=== PATIENT | male | born 1955 | race Two or more races ===

== ENCOUNTER → 2017-01-19 | Outpatient (CLI) | payer MEDICARE, MEDICAID ==
[~2017-01-19] MED LIST: Benztropine; CALC600T3; FLUP10TA PO; LEVO175T2; QUET5TAB; ROSU20TA; Tamsulosin
== END ==
LOC: M SMT 14:20
PROVIDERS: ATTEND Urology
DX: R97.20 Elevated prostate specific antigen [PSA] (principal); R35.0 Frequency of micturition
CPT/HCPCS: 36415; 81001; 84153; 87086; G0463

== ENCOUNTER 2017-04-28 15:53 | Emergency (ER) | payer MEDICARE, MEDICAID ==
[~2017-04-28] VITALS: Ht 177.8 cm; Wt 64.5 kg
[2017-04-28] MEDS ORDERED: FLUP10TA PO (16:24)
[2017-04-28] MEDS ORDERED: Tamsulosin (16:24)
[2017-04-28] MEDS ORDERED: CALC600T3 (16:24)
[2017-04-28] MEDS ORDERED: QUET5TAB (16:24)
[2017-04-28] MEDS ORDERED: ROSU20TA (16:24)
[2017-04-28] MEDS ORDERED: Benztropine (16:24)
[2017-04-28] MEDS ORDERED: LEVO175T2 (16:24)
[2017-04-28 16:41] LABS: BASO % 0.6 % (0.0-1.0); EOS # 0.2 K/mm3 (0.0-0.50); EOS % 3.1 % (0.0-3.0); LARGE UNSTAINED CELL # 0.1 K/mm3 (0.0-0.4); LARGE UNSTAINED CELL % 2.2 % (0.0-4.0); LYMPH # 1.3 K/mm3 (1.5-4.5); MEAN CORPUSCULAR HEMOGLOBIN 30.1 pg (27.0-33.0); MEAN CORPUSCULAR HGB CONC 35.9 g/dl (32.0-36.5); MEAN CORPUSCULAR VOLUME 83.8 fl (80.0-96.0); MONO # 0.4 K/mm3 (0.0-0.8); MONO % 6.3 % (0.0-5.0); NEUTROPHILS # 3.7 K/mm3 (1.8-7.7); NEUTROPHILS % 65.8 % (36.0-66.0); PLATELET COUNT, AUTOMATED 151 k/mm3 (150-450); RED CELL DISTRIBUTION WIDTH 13.4 % (11.5-14.5); WHITE BLOOD COUNT 5.6 K/mm3 (4.0-10.0)
[2017-04-28 16:46] LABS: INR 1.08
[2017-04-28 17:12] LABS: ALBUMIN 3.9 GM/DL (3.2-5.2); ALKALINE PHOSPHATASE 80 U/L (45-117); ALT/SGPT 52 U/L (12-78); ANION GAP 9 MEQ/L (8-16); AST/SGOT 18 U/L (15-37); BILIRUBIN,DIRECT 0.1 MG/DL (0.0-0.2); BILIRUBIN,TOTAL 0.4 MG/DL (0.2-1.0); BLOOD UREA NITROGEN 14 MG/DL (7-18); CALCIUM LEVEL 8.8 MG/DL (8.8-10.2); CARBON DIOXIDE LEVEL 27 MEQ/L (21-32); CHLORIDE LEVEL 109 MEQ/L (98-107); CREATININE FOR GFR 1.02 MG/DL (0.70-1.30); GLOMERULAR FILTRATION RATE > 60.0 (>49); GLUCOSE, FASTING 103 MG/DL (80-110); MAGNESIUM LEVEL 2.3 MG/DL (1.8-2.4); POTASSIUM SERUM 3.9 MEQ/L (3.5-5.1); SODIUM LEVEL 145 MEQ/L (136-145); TOTAL PROTEIN 6.5 GM/DL (6.4-8.2)
[2017-04-28] MEDS ORDERED: NS 1,000 ML IV ONE (17:45)
[2017-04-28 17:58] LABS: PHOSPHORUS LEVEL 3.9 MG/DL (2.5-4.9)
[2017-04-28 21:15] VITALS: BP 133/72
--- NOTE | 2017-04-30 05:47 | ECGEPIP ---
Stationary ECG Study [facility] - ED Test Date: 2017-04-28 Pat Name: MYAH STARK Department: Room: - Gender: M Director Behavioral Health: evelio : 1955 Requested By: Singh Temple PA-C Order Number: [id number] Reading MD: Garrison Guardado Measurements Intervals [place] Rate: 62 P: 63 [place]: 164 QRS: -25 QRSD: 85 T: 48 QT: 388 QTc: 396 Interpretive Statements SINUS RHYTHM SEPTAL MYOCARDIAL INFARCTION, PROBABLY OLD Electronically Signed On 04-30-2017 5:47:18 EDT by Garrison Guardado
== END 2017-04-28 21:23 | disposition home or self-care (01) ==
LOC: M ED 15:53
DX: T42.71XA Poisoning by unspecified antiepileptic and sedative-hypnotic drugs, accidental (unintentional), initial encounter (principal); F99 Mental disorder, not otherwise specified; Z79.899 Other long term (current) drug therapy; Z88.0 Allergy status to penicillin

== ENCOUNTER → 2017-08-17 | Outpatient (REF) | payer MEDICARE, MEDICAID ==
[2017-08-17 19:05] LABS: APPEARANCE, URINE CLEAR (CLEAR); BACTERIA, URINE AUTO NEGATIVE (NEGATIVE); BILIRUBIN, URINE AUTO NEGATIVE (NEGATIVE); BLOOD, URINE BLOOD 1+ (NEGATIVE); COLOR, URINE STRAW (YELLOW); GLUCOSE, URINE (UA) AUTO NEGATIVE (NEGATIVE); KETONE, URINE AUTO NEGATIVE (NEGATIVE); LEUKOCYTE ESTERASE, URINE AUTO NEGATIVE (NEGATIVE); NITRITE, URINE AUTO NEGATIVE (NEGATIVE); PROTEIN, URINE AUTO NEGATIVE (NEGATIVE); RBC, URINE AUTO 0 /HPF (0-3); SPECIFIC GRAVITY URINE AUTO 1.008 (1.002-1.035); SQUAMOUS EPITHELIAL CELL UR AU 0 /HPF (0-6); UROBILINOGEN, URINE AUTO 0.2 mg/dL (0.0-2.0); WBC, URINE AUTO 0 /HPF (0-3)
== END ==
LOC: M SMT 18:11
DX: N40.1 Benign prostatic hyperplasia with lower urinary tract symptoms (principal)
CPT/HCPCS: 81001

== ENCOUNTER → 2017-08-22 | Outpatient (CLI) | payer MEDICARE, MEDICAID | LOC: M SMT 12:18 | DX: N40.1 Benign prostatic hyperplasia with lower urinary tract symptoms (principal) | CPT/HCPCS: 76857 ==

== ENCOUNTER 2018-11-13 11:02 | Emergency (ER) | payer MEDICARE, MEDICAID ==
[~2018-11-13] VITALS: Ht 177.8 cm; Wt 80.5 kg
[~2018-11-13 11:02] MED LIST changes: -ROSU20TA; +ROSU20TA4
[2018-11-13 12:38] LABS: HEMATOCRIT 43.5 % (42.0-52.0); HEMOGLOBIN 14.6 g/dl (13.5-17.5); MEAN CORPUSCULAR HGB CONC 33.6 g/dl (32.0-36.5); MEAN CORPUSCULAR VOLUME 86.5 fl (80.0-96.0); PLATELET COUNT, AUTOMATED 141 10^3/uL (150-450); RED BLOOD COUNT 5.03 10^6/uL (4.30-6.10); WHITE BLOOD COUNT 6.9 10^3/uL (4.0-10.0)
[2018-11-13 13:36] LABS: ACETAMINOPHEN LEVEL < 2.0 UG/ML (10.0-30.0); ALBUMIN 4.1 GM/DL (3.2-5.2); ALT/SGPT 67 U/L (12-78); BILIRUBIN,DIRECT 0.1 MG/DL (0.0-0.2); BILIRUBIN,TOTAL 0.5 MG/DL (0.2-1.0); BLOOD UREA NITROGEN 15 MG/DL (7-18); CALCIUM LEVEL 9.3 MG/DL (8.8-10.2); CARBON DIOXIDE LEVEL 26 MEQ/L (21-32); CHLORIDE LEVEL 109 MEQ/L (98-107); ETHYL ALCOHOL (ETHANOL) < 0.003 % (0.000-0.010); GLOMERULAR FILTRATION RATE > 60.0 (>49); GLUCOSE, FASTING 86 MG/DL (70-100); POTASSIUM SERUM 4.1 MEQ/L (3.5-5.1); SALICYLATE LEVEL < 1.7 MG/DL (5.0-30.0); SODIUM LEVEL 142 MEQ/L (136-145); TOTAL PROTEIN 6.6 GM/DL (6.4-8.2)
[2018-11-13 13:51] LABS: AMPHETAMINES LEVEL URINE NEGATIVE (NEGATIVE); BARBITURATES URINE NEGATIVE (NEGATIVE); BENZODIAZEPINES URINE NEGATIVE (NEGATIVE); CANNABINOIDS URINE NEGATIVE (NEGATIVE); COCAINE METABOLITE URINE NEGATIVE (NEGATIVE); METHADONE URINE NEGATIVE (NEGATIVE); OPIATES URINE NEGATIVE (NEGATIVE); PHENCYCLIDINE URINE NEGATIVE (NEGATIVE)
[2018-11-13 17:34] VITALS: BP 125/73
== END 2018-11-13 17:56 | disposition home or self-care (01) ==
LOC: M ED 11:02
DX: F20.9 Schizophrenia, unspecified (principal); Z79.899 Other long term (current) drug therapy
CPT/HCPCS: 80048; 80076; 80307; 84443; 85027; 99284; G0480

== ENCOUNTER → 2019-09-03 | Outpatient (REF) | payer MEDICARE, MEDICAID ==
[~2019-09-03] MED LIST changes: -FLUP10TA PO; +FLUP10TA11 PO; -ROSU20TA4; +ROSU20TA5
[2019-09-03 20:46] LABS: FREE T4 1.25 NG/DL (0.76-1.46); THYROID STIMULATING HORMONE 3.89 uIU/ML (0.358-3.740)
[2019-09-03 20:47] LABS: BASO # 0.1 10^3/uL (0.0-0.2); BASO % 0.7 % (0.0-1.0); EOS # 0.2 10^3/uL (0.0-0.5); EOS % 2.2 % (0.0-3.0); HEMATOCRIT 43.4 % (42.0-52.0); HEMOGLOBIN 14.4 g/dl (13.5-17.5); LYMPH # 1.5 10^3/uL (1.5-5.0); LYMPH % 20.6 % (24.0-44.0); MEAN CORPUSCULAR HEMOGLOBIN 29.2 pg (27.0-33.0); MEAN CORPUSCULAR HGB CONC 33.2 g/dl (32.0-36.5); MONO # 0.6 10^3/uL (0.0-0.8); MONO % 7.6 % (0.0-5.0); NEUTROPHILS % 68.4 % (36.0-66.0); PLATELET COUNT, AUTOMATED 145 10^3/uL (150-450); RED BLOOD COUNT 4.93 10^6/uL (4.30-6.10); TOTAL 25(OH) VITAMIN D 34.2 NG/ML (30.0-100.0); WHITE BLOOD COUNT 7.4 10^3/uL (4.0-10.0)
== END ==
LOC: M LAB REF 14:49
PROVIDERS: ATTEND Nurse Practitioner Family
DX: Z13.9 Encounter for screening, unspecified (principal); E55.9 Vitamin D deficiency, unspecified; E03.9 Hypothyroidism, unspecified; D69.6 Thrombocytopenia, unspecified

== ENCOUNTER 2019-11-01 11:45 | Emergency (ER) | payer MEDICARE, MEDICAID ==
[~2019-11-01] VITALS: Ht 177.8 cm; Wt 76.8 kg
[2019-11-01] MEDS ORDERED: VITA200010 (11:56)
[2019-11-01] MEDS ORDERED: BENZ0.5T23 (11:56)
[2019-11-01 13:02] LABS: BASO # 0.1 10^3/uL (0.0-0.2); EOS # 0.1 10^3/uL (0.0-0.5); EOS % 2.7 % (0.0-3.0); HEMATOCRIT 42.4 % (42.0-52.0); HEMOGLOBIN 14.3 g/dl (13.5-17.5); LYMPH # 1.5 10^3/uL (1.5-5.0); LYMPH % 31.5 % (24.0-44.0); MEAN CORPUSCULAR HGB CONC 33.7 g/dl (32.0-36.5); MONO # 0.5 10^3/uL (0.0-0.8); MONO % 10.2 % (0.0-5.0); NEUTROPHILS # 2.7 10^3/uL (1.5-8.5); NEUTROPHILS % 54.4 % (36.0-66.0); PLATELET COUNT, AUTOMATED 150 10^3/uL (150-450); RED BLOOD COUNT 4.93 10^6/uL (4.30-6.10); WHITE BLOOD COUNT 4.9 10^3/uL (4.0-10.0)
[2019-11-01 13:32] LABS: ALBUMIN 3.7 GM/DL (3.2-5.2); ALT/SGPT 25 U/L (12-78); BILIRUBIN,DIRECT 0.2 MG/DL (0.0-0.2); BILIRUBIN,TOTAL 0.5 MG/DL (0.2-1.0); BLOOD UREA NITROGEN 11 MG/DL (7-18); CALCIUM LEVEL 9.3 MG/DL (8.8-10.2); CARBON DIOXIDE LEVEL 31 MEQ/L (21-32); CHLORIDE LEVEL 106 MEQ/L (98-107); CK-MB VALUE MASS < 1.0 NG/ML (<3.6); CPK CREATINE PHOSPHOKINASE 106 U/L (39-308); CREATININE FOR GFR 1.19 MG/DL (0.70-1.30); GLOMERULAR FILTRATION RATE > 60.0 (>49); GLUCOSE, FASTING 86 MG/DL (70-100); MB/CK RELATIVE INDEX 0.94 (< OR =4); POTASSIUM SERUM 4.1 MEQ/L (3.5-5.1); SODIUM LEVEL 140 MEQ/L (136-145); THYROID STIMULATING HORMONE 0.159 uIU/ML (0.358-3.740); TOTAL PROTEIN 6.3 GM/DL (6.4-8.2); TROPONIN I < 0.02 NG/ML (< 0.10)
[2019-11-01] MEDS ORDERED: NS 1,000 ML IV ONE (13:45)
[2019-11-01 16:45] VITALS: BP 116/75
[2019-11-01] MEDS ORDERED: SERO50TA PO (16:58)
--- NOTE | 2019-11-02 08:43 | ECGEPIP ---
[facility] - ED Test Date: 2019-11-01 Pat Name: MYAH STARK Department: Room: - Gender: Male Therapeutic Recreation Director: liliya : 1955 Requested By: Garrison Butler Order Number: [id number] Reading MD: Ana Bernstein Measurements Intervals [place] Rate: 64 P: 67 ME: 124 QRS: -51 QRSD: 92 T: 52 QT: 402 QTc: 415 Interpretive Statements SINUS RHYTHM LEFT ANTERIOR FASCICULAR BLOCK POSSIBLE OLD SEPTAL [place] SIMILAR 04/28/17 Electronically Signed on 11-02-2019 8:43:11 EDT by Ana Bernstein
== END 2019-11-01 17:21 | disposition home or self-care (01) ==
LOC: M ED 11:45
DX: I95.2 Hypotension due to drugs (principal); T43.595A Adverse effect of other antipsychotics and neuroleptics, initial encounter; F20.9 Schizophrenia, unspecified; E78.5 Hyperlipidemia, unspecified; K75.81 Nonalcoholic steatohepatitis (NASH); Z87.891 Personal history of nicotine dependence; Z79.899 Other long term (current) drug therapy

== ENCOUNTER 2020-01-06 12:25 | Inpatient (IN) | payer MEDICARE, MEDICAID ==
[~2020-01-06] VITALS: Ht 177.8 cm; Wt 72.7 kg
[~2020-01-06 12:25] MED LIST changes: +BENZ0.5T23 PO; -CALC600T3; +CALC600T3 PO; -LEVO175T2; +LEVO175T2 PO; -ROSU20TA5; +ROSU20TA5 PO; +SERO50TA PO; +VITA200010 PO
[2020-01-06 13:29] LABS: HEMATOCRIT 44.2 % (42.0-52.0); HEMOGLOBIN 14.8 g/dl (13.5-17.5); MEAN CORPUSCULAR HGB CONC 33.5 g/dl (32.0-36.5); MEAN CORPUSCULAR VOLUME 86.5 fl (80.0-96.0); PLATELET COUNT, AUTOMATED 133 10^3/uL (150-450); RED BLOOD COUNT 5.11 10^6/uL (4.30-6.10); WHITE BLOOD COUNT 7.6 10^3/uL (4.0-10.0)
[2020-01-06 13:37] LABS: AMPHETAMINES LEVEL URINE NEGATIVE (NEGATIVE); BARBITURATES URINE NEGATIVE (NEGATIVE); BENZODIAZEPINES URINE NEGATIVE (NEGATIVE); CANNABINOIDS URINE NEGATIVE (NEGATIVE); COCAINE METABOLITE URINE NEGATIVE (NEGATIVE); METHADONE URINE NEGATIVE (NEGATIVE); OPIATES URINE NEGATIVE (NEGATIVE); PHENCYCLIDINE URINE NEGATIVE (NEGATIVE)
[2020-01-06 13:49] LABS: ACETAMINOPHEN LEVEL < 2.0 UG/ML (10.0-30.0); ALT/SGPT 60 U/L (12-78); BILIRUBIN,DIRECT 0.2 MG/DL (0.0-0.2); BILIRUBIN,TOTAL 0.4 MG/DL (0.2-1.0); BLOOD UREA NITROGEN 10 MG/DL (7-18); CALCIUM LEVEL 9.2 MG/DL (8.8-10.2); CARBON DIOXIDE LEVEL 30 MEQ/L (21-32); CHLORIDE LEVEL 106 MEQ/L (98-107); CREATININE FOR GFR 1.02 MG/DL (0.70-1.30); ETHYL ALCOHOL (ETHANOL) < 0.003 % (0.000-0.010); GLOMERULAR FILTRATION RATE > 60.0 (>49); GLUCOSE, FASTING 86 MG/DL (70-100); SALICYLATE LEVEL < 1.7 MG/DL (5.0-30.0); SODIUM LEVEL 144 MEQ/L (136-145); TOTAL PROTEIN 6.7 GM/DL (6.4-8.2)
[2020-01-06] MEDS ORDERED: CALCTAB62 PO (14:48)
[2020-01-06] MEDS ORDERED: SERO50TA PO (14:48)
[2020-01-06] MEDS ORDERED: METAL LOCK LOOP XX ONE (17:48)
[2020-01-06] MEDS ORDERED: MOM 30ML SUSPENSION UDC PO PRN (18:30)
[2020-01-06] MEDS ORDERED: MAALOX 30 ML SUSP *UDC PO PRN (18:30)
[2020-01-06] MEDS ORDERED: ACETAMINOPHEN TAB 650MG DOSE (2X325MG) PO PRN (18:30)
[2020-01-06 22:00] VITALS: BP 132/78
[2020-01-07] MEDS: LEVOTHYROXINE 100MCG TABLET (0.1MG) PO SCH (05:58)
[2020-01-07] MEDS: LEVOTHYROXINE 75MCG TABLET (0.075MG) PO SCH (05:58)
[2020-01-07 06:40] VITALS: BP 122/84
--- NOTE | 2020-01-07 09:12 | MHHPEPDOC ---
General Date Of Admission: Jan 06, 2020 Legal Status: 9.13 Chief Complaint I want my meds increased" History of Present Illness HISTORY OF THE PRESENT ILLNESS: Patient is a 64 -year-old , male, who presented to [facility] at the behest of his shelter, he reported that he had become increasingly depressed and less interested, it was difficult to redirect him during the discussion as he was quite rapid and pressured. The staff at [facility] have noticed that he is become increasingly more disturbed and that his behaviors have changed. No medications had been altered and he become very much depressed and despondent. The patient presented and was admitted voluntarily as he wanted his medications increased. The patient reported that he has various hallucinations of his previous doctors and sister and then goes into a long diatribe on sexualization. Psychiatric Review of Systems Depression (2 or more weeks): anhedonia, decreased energy, difficulty concentrating, psychomotor changes Brandee (4 or more days of): other (no changes, no appearence of previous episode) Psychosis: auditory hallucination, paranoia, disorganization PTSD: denies Anxiety: situational anxiety, stressor related anxiety Past Psychiatric History Previous Psychiatric Diagnosis: Schizophrenia . Previous Psychiatric Admissions: 2003 . Suicide Attempts: denies. Psychiatric Follow-up: [facility]. Psychiatric medications: Prolixin and seroquel. Past Medical History Medical Problems hypothyroid Family Medical/Psychiatric HX Medical Problems unable to determine patient poor historian Addiction History denies Social History Current Living Situation: lives at [facility]. Education: . Employment: works at times. Social Support: [facility]. Legal: none noted . Marital: single, no children. Mental Status Examination General Appearance: unkempt Build: average Demeanor: average Eye Contact: average Activity: average Behavior: cooperative Speech: rapid Mood: elevated Affect: disorganized Thought Process: circumstantial, associative, racing Thought Content (Delusions): persecutory, paranoia Thought Content (Other): appears paranoid Thought Content (Aggressive): none reported Perception (Hallucinations): auditory Cognition(Intelligence Est.): average Oriented: Awake, Alert, Oriented times three Insight: poor Judgment: Poor Psychosis: Psychotic Perceptions A-FIB/CHADSVASC A-FIB History Current/History of A-Fib/PAF?: No Assessment 64 yo man with hx of schizophrenia presents with increasing bizarre behavior Problem List Problems: (1) Depression Status: Acute Response to Treatment: Uncontrolled Problem Specific Plan: Monitor Clinically Problem Text: add sertraline to 25mg daily, discussed with patient as far as possible. (2) Chronic schizophrenia Status: Acute Response to Treatment: Uncompensated Problem Text: increase proxilin to 15mg BID (3) Hypothyroid Status: Chronic Problem Specific Plan: Monitor Clinically Problem Text: continue home meds Initial Treatment Plan 1. Patient was admitted on a [9.13] status. 2. Complete history was obtained. 3. With patients permission, family will be contacted and database will be expanded. 4. Patients medication regimen will be reviewed and changed accordingly. 5. Patient will be provided with protected environment. 6. Patient will be treated with individual, group, and milieu therapies. 7. Patient will receive supportive psych-education. 8. Discharge planning will commence immediately. 9. Outpatient follow-up treatment will be strongly recommended. 10. The initial treatment plan will focus initially on: * Altered thoughts ESTIMATED LENGTH OF STAY: 2-5 DAYS. TIME SPENT COUNSELING AND COORDINATING INITIAL CARE: 30 minutes. Vital Signs Vital Signs Date Time Temp Pulse Resp B/P (MAP) Pulse Ox O2 Delivery O2 Flow Rate FiO2 01/07/20 08:57 Room Air 01/07/20 06:40 98.1 73 14 122/84 (97) 98 Laboratory Data 24H Labs Laboratory Tests 2 01/06/20 12:53: Nucleated Red Blood Cells % (auto) 0.0, Anion Gap 8, Glomerular Filtration Rate > 60.0, Calcium Level 9.2, Total Bilirubin 0.4, Direct Bilirubin 0.2, Aspartate Amino Transf (AST/SGOT) 27, Alanine Aminotransferase (ALT/SGPT) 60, Alkaline Phosphatase 75, Total Protein 6.7, Albumin 4.0, Albumin/Globulin Ratio 1.5, Thyroid Stimulating Hormone (TSH) 7.630H, Salicylates Level < 1.7L, Urine Opiates Screen NEGATIVE, Urine Methadone Screen NEGATIVE, Acetaminophen Level < 2.0L, Urine Barbiturates Screen NEGATIVE, Urine Phencyclidine Screen NEGATIVE, Urine Amphetamines Screen NEGATIVE, Urine Benzodiazepines Screen NEGATIVE, Urine Cocaine Metabolite Screen NEGATIVE, Urine Cannabinoids Screen NEGATIVE, Ethyl Alcohol Level < 0.003 CBC/BMP Laboratory Tests 01/06/20 12:53 Medications Scheduled Benztropine Mesylate (Benztropine Mesylate) 0.5 Mg Tablet, 0.5 MG PO BID, (Reported) Calcium Carbonate (Calcium) 600 Mg Tablet, 600 MG PO DAILY, (Reported) Cholecalciferol (Vitamin D3) (Vitamin D3) 50 Mcg Tablet, 50 MCG PO DAILY, (Reported) Fluphenazine HCl (Fluphenazine HCl) 10 Mg Tab, 10 MG PO BID, (Reported) Levothyroxine Sodium (Levothyroxine Sodium) 175 Mcg Tab, 175 MCG PO DAILY, (Re ported) Quetiapine Fumarate (Seroquel) 50 Mg Tablet, 50 MG PO BID, (Reported) Rosuvastatin Calcium (Rosuvastatin Calcium) 20 Mg Tab, 20 MG PO DAILY, (Reported) Allergies Coded Allergies: No Known Allergies (Unverified , 11/13/18) MICHEAL ANDRES DO Jan 07, 2020 09:12
[2020-01-07] MEDS ORDERED: SERTRALINE HCL 25 MG TABLET PO ONE (11:15)
[2020-01-07] MEDS: ROSUVASTATIN 10 MG TAB (CRESTOR) PO SCH (11:50)
--- NOTE | 2020-01-07 14:20 | HPEPDOC ---
[facility] Medical History & Physical Date of Admission Jan 07, 2020 Date of Service: Jan 07, 2020 History and Physical CHIEF COMPLAINT: Admitted to [facility] for Psychosis HISTORY OF PRESENT ILLNESS: 64-year-old male with past medical history of schizophrenia, hypothyroidism and hyperlipidemia is admitted to inpatient mental health unit for psychosis. Patient feels better after coming here, without any clonus at this time. He reports good compliance with outpatient medication. He denies any source of breath, chest pain, nausea, vomiting, diarrhea or constipation. 10 point review of system is negative except for above PAST MEDICAL HISTORY: 1. Schizophrenia. 2. Hypothyroidism. 3. Hyperlipidemia. PAST SURGICAL HISTORY: 1. Navel surgery. SOCIAL HISTORY: Previous smoker. Denies alcohol use. Denies drug use FAMILY HISTORY: Negative for heart disease or malignancy ALLERGIES: Please see below. HOME MEDICATIONS: Please see below. PHYSICAL EXAMINATION: VITAL SIGNS: Please see below. GENERAL: No distress HEENT: Normocephalic, atraumatic, moist mucous membranes NECK: Supple CARDIOVASCULAR EXAMINATION: S1, S2, no murmurs RESPIRATORY EXAMINATION: Clear to auscultation, no wheezing ABDOMINAL EXAMINATION: Soft, nontender, nondistended, positive bowel sounds EXTREMITIES: Range of motion intact SKIN: No rash NEUROLOGICAL EXAMINATION: Alert and oriented 3, no focal deficits PSYCHIATRIC EXAMINATION: Calm and cooperative LABORATORY DATA: See below. MICROBIOLOGY: Please see below. ASSESSMENT: 64-year-old male with multiple medical comorbidities is admitted to inpatient with positive for psychosis. PLAN: 1. Psychosis. Management as per primary team 2. Hypothyroidism. Continue levothyroxine 3. Hyperlipidemia. Continue Crestor Patient is medically stable, please reconsult as needed. Vital Signs Vital Signs Date Time Temp Pulse Resp B/P (MAP) Pulse Ox O2 Delivery O2 Flow Rate FiO2 01/07/20 08:57 Room Air 01/07/20 06:40 98.1 73 14 122/84 (97) 98 Home Medications Scheduled Benztropine Mesylate (Benztropine Mesylate) 0.5 Mg Tablet, 0.5 MG PO BID Calcium Carbonate (Calcium) 600 Mg Tablet, 600 MG PO DAILY Cholecalciferol (Vitamin D3) (Vitamin D3) 50 Mcg Tablet, 50 MCG PO DAILY Fluphenazine HCl (Fluphenazine HCl) 10 Mg Tab, 10 MG PO BID Levothyroxine Sodium (Levothyroxine Sodium) 175 Mcg Tab, 175 MCG PO DAILY Quetiapine Fumarate (Seroquel) 50 Mg Tablet, 50 MG PO BID Rosuvastatin Calcium (Rosuvastatin Calcium) 20 Mg Tab, 20 MG PO DAILY Allergies Coded Allergies: No Known Allergies (Unverified , 11/13/18) A-FIB/CHADSVASC A-FIB History Current/History of A-Fib/PAF?: No JONATHAN DEVRIES MD Jan 07, 2020 14:20
[2020-01-07 17:09] VITALS: BP 122/77
[2020-01-07] MEDS: QUEtiapine FUMARATE 50 MG TAB PO SCH (21:39)
[2020-01-08] MEDS: LEVOTHYROXINE 75MCG TABLET (0.075MG) PO SCH (06:08)
[2020-01-08] MEDS: LEVOTHYROXINE 100MCG TABLET (0.1MG) PO SCH (06:08)
[2020-01-08 06:35] VITALS: BP 125/77
--- NOTE | 2020-01-08 09:15 | MHIPNPDOC ---
[facility] Progress Note Progress Note DATE OF SERVICE: 01/08/20 Events Overnight: none noted Group Attendance: attending Symptom changes (psych ROS): reports improving hallucinations, less paranoia and general overall sense of well-being improving. Staff Report: generally isolative although pleasant upon approach per staff Medical ROS: Gen: -fevers, chills Cardio: -chest pain, palpations [place]: -SOB, cough GI: -N,V,D,C Neuro: -tremors, msk stiffness Derm: -rash MSE: General: Well dressed with good hygiene Speech: Spontaneous and fluid Thought processes: Linear and logical Thought content: Future orientated Abstract reasoning, and computation: Intact Description of associations: Intact Description of abnormal or psychotic thoughts:Denies any suicidal or homicidal ideation. Denies any auditory or visual hallucinations. Does not appear to be responding to internal stimuli. Does not appear to be endorsing any bizarre or paranoid ideation. Judgment: fair Insight: fair Orientation: Alert and orientated 3 Recent and remote memory: Intact Attention span and concentration: Intact Fund of knowledge: Adequate Mood: "okay" Affect: Euthymic with a full range Vital Signs Vital Signs Date Time Temp Pulse Resp B/P (MAP) Pulse Ox O2 Delivery O2 Flow Rate FiO2 01/08/20 08:06 Room Air 01/08/20 06:35 96.4 77 16 125/77 (93) 97 Current Medications Current Medications Medications (Trade) Dose Ordered Sig/Teresa Route PRN Reason Start Time Stop Time Status Last Admin Dose Admin Acetaminophen (Tylenol Tab) 650 mg Q6HP PRN PO HEADACHE or DISCOMFORT 01/06/20 18:30 Al Hydrox/Mg Hydrox/Simethicone (Mylanta) 30 ml Q4HP PRN PO HEARTBURN/INDIGESTION 01/06/20 18:30 Fluphenazine HCl (Prolixin) 15 mg BID PO 01/07/20 09:00 01/07/20 21:39 Home Med (Med Rec Complete!) ASDIRECTED XX 01/06/20 15:00 01/06/20 14:50 DC Levothyroxine Sodium (Synthroid) 75 mcg DAILY@06 PO 01/07/20 06:00 01/08/20 06:08 Levothyroxine Sodium (Synthroid) 100 mcg DAILY@06 PO 01/07/20 06:00 01/08/20 06:08 Magnesium Hydroxide (Milk Of Magnesia) 30 ml DAILYPRN PRN PO CONSTIPATION 01/06/20 18:30 Quetiapine Fumarate (SEROquel) 50 mg QHS PO 01/07/20 21:00 01/07/20 21:39 Rosuvastatin Calcium (Crestor) 20 mg DAILY PO 01/07/20 09:00 01/07/20 11:50 Sertraline HCl (Zoloft) 25 mg QAM PO 01/08/20 09:00 Trazodone HCl (Desyrel) 50 mg QHSP PRN PO INSOMNIA 01/06/20 18:30 Allergies Coded Allergies: No Known Allergies (Unverified , 11/13/18) Problems (1) Chronic schizophrenia Status: Acute Response to Treatment: Improving Problem Text: Continue fluphenazine 15 mg BID (2) Depression Status: Acute Response to Treatment: Improving Problem Text: Continue sertraline 25 mg daily Plan / VTE VTE Prophylaxis Ordered?: No Plan Diet: Continue Current Activity: Continue Current Anticipated Discharge: Other Anticipated D/C ([facility] end of the week) MICHEAL ANDRES DO Jan 08, 2020 09:15
[2020-01-08] MEDS: SERTRALINE HCL 25 MG TABLET PO SCH (09:43)
[2020-01-08] MEDS: ROSUVASTATIN 10 MG TAB (CRESTOR) PO SCH (09:44)
[2020-01-08 17:17] VITALS: BP 119/83
[2020-01-08] MEDS: traZODone 50 MG TAB PO PRN (20:40)
[2020-01-08] MEDS: QUEtiapine FUMARATE 50 MG TAB PO SCH (20:40)
[2020-01-09] MEDS: LEVOTHYROXINE 100MCG TABLET (0.1MG) PO SCH (06:08)
[2020-01-09] MEDS: LEVOTHYROXINE 75MCG TABLET (0.075MG) PO SCH (06:08)
[2020-01-09 06:37] VITALS: BP 113/60
[2020-01-09] MEDS: ROSUVASTATIN 10 MG TAB (CRESTOR) PO SCH (08:22)
[2020-01-09] MEDS: SERTRALINE HCL 25 MG TABLET PO SCH (08:22)
--- NOTE | 2020-01-09 09:26 | MHIPNPDOC ---
[facility] Progress Note Progress Note DOS 01/09/2020 Events Overnight: none Group Attendance:: attending Symptom changes (psych ROS): reports strong improvement with no paranoia and the hallucinations fading quite precipitously. Reports he is feeling much better and not depressed. Staff Report: very pleasant and improving in terms of abilities and socialization skills. Medical ROS: [Gen: -fevers, chills] [Cardio: -chest pain, palpations] [[place]: -SOB, cough] [GI: -N,V,D,C] [Neuro: -tremors, msk stiffness] [Derm: -rash] MSE: Vitals: Below [General: Well dressed with good hygiene Speech: much improved Thought processes: Linear and logical Thought content: Future orientated Abstract reasoning, and computation: Intact Description of associations: Intact Description of abnormal or psychotic thoughts:Denies any suicidal or homicidal ideation. Denies any auditory or visual hallucinations. Does not appear to be responding to internal stimuli. Does not appear to be endorsing any bizarre or paranoid ideation. Judgment: improved Insight: improved Orientation: Alert and orientated 3 Recent and remote memory: Intact Attention span and concentration: Intact Fund of knowledge: Adequate Mood: "okay" Affect: Euthymic with a full range] Vital Signs Vital Signs Date Time Temp Pulse Resp B/P (MAP) Pulse Ox O2 Delivery O2 Flow Rate FiO2 01/09/20 06:37 98.7 78 18 113/60 (77) 98 Room Air Current Medications Current Medications Medications (Trade) Dose Ordered Sig/Teresa Route PRN Reason Start Time Stop Time Status Last Admin Dose Admin Acetaminophen (Tylenol Tab) 650 mg Q6HP PRN PO HEADACHE or DISCOMFORT 01/06/20 18:30 Al Hydrox/Mg Hydrox/Simethicone (Mylanta) 30 ml Q4HP PRN PO HEARTBURN/INDIGESTION 01/06/20 18:30 Fluphenazine HCl (Prolixin) 15 mg BID PO 01/07/20 09:00 01/09/20 08:22 Home Med (Med Rec Complete!) ASDIRECTED XX 01/06/20 15:00 01/06/20 14:50 DC Levothyroxine Sodium (Synthroid) 75 mcg DAILY@06 PO 01/07/20 06:00 01/09/20 06:08 Levothyroxine Sodium (Synthroid) 100 mcg DAILY@06 PO 01/07/20 06:00 01/09/20 06:08 Magnesium Hydroxide (Milk Of Magnesia) 30 ml DAILYPRN PRN PO CONSTIPATION 01/06/20 18:30 Quetiapine Fumarate (SEROquel) 50 mg QHS PO 01/07/20 21:00 01/08/20 20:40 Rosuvastatin Calcium (Crestor) 20 mg DAILY PO 01/07/20 09:00 01/09/20 08:22 Sertraline HCl (Zoloft) 25 mg QAM PO 01/08/20 09:00 01/09/20 08:22 Trazodone HCl (Desyrel) 50 mg QHSP PRN PO INSOMNIA 01/06/20 18:30 01/08/20 20:40 Allergies Coded Allergies: No Known Allergies (Unverified , 11/13/18) Problems (1) Chronic schizophrenia Status: Acute Response to Treatment: Stable Problem Text: Continue fluphenazine 15 mg BID (2) Depression Status: Acute Response to Treatment: Stable Problem Text: Continue sertraline 25 mg daily Plan / VTE VTE Prophylaxis Ordered?: No Plan Diet: Continue Current Activity: Continue Current Anticipated Discharge: Other Anticipated D/C (Discharge to [facility] tomorrow) MICHEAL ANDRES DO Jan 09, 2020 09:26
[2020-01-09 17:26] VITALS: BP 131/78
[2020-01-09] MEDS: QUEtiapine FUMARATE 50 MG TAB PO SCH (20:24)
[2020-01-09] MEDS: traZODone 50 MG TAB PO PRN (20:24)
[2020-01-10] MEDS: LEVOTHYROXINE 100MCG TABLET (0.1MG) PO SCH (05:57)
[2020-01-10] MEDS: LEVOTHYROXINE 75MCG TABLET (0.075MG) PO SCH (05:57)
[2020-01-10 06:15] VITALS: BP 123/70
[2020-01-10] MEDS: SERTRALINE HCL 25 MG TABLET PO SCH (09:03)
[2020-01-10] MEDS: ROSUVASTATIN 10 MG TAB (CRESTOR) PO SCH (09:03)
[2020-01-10] MEDS ORDERED: TRAZ-252 PO (10:02)
[2020-01-10] MEDS ORDERED: FLUP5TA PO (10:02)
[2020-01-10] MEDS ORDERED: SERT25TA21 PO (10:02)
--- NOTE | 2020-01-10 10:02 | MHDSPDOC ---
[facility] Discharge Summary Discharge Summary DATE OF ADMISSION: Jan 06, 2020 at 18:21 DATE OF DISCHARGE: 01/10/2020 DISCHARGE DIAGNOSES: See Problem list below REASON FOR ADMISSION: 64-year-old man with a history of chronic schizophrenia presents compensated with some depression, wanting care CONSULTANTS INVOLVED:[ None (basic hospitalist screening)] TREATMENT AND PROGRESS ON THE UNIT : Medication changes: Prolixin was increased to 15 mg BID, augmented with sertra line 25 mg, home Seroquel was resumed at 50 mg nightly, trazodone was used as needed at 50 mg Behavior on unit: friendly and amenable, at 1st quite socially isolated but became more engaged as he recovered Treatment attendance: attended well Notable issues on presentation: patient was very eager to have treatment and very grateful State on discharge: [improved] DISCHARGE ASSESSMENT: The patient a 64 year old man, with likely chronic schizophrenia, presented to [facility], where they are treated with increased neuroleptic and augmented with antidepressant with positive effects. Legal status considerations: The patient at the time of discharge did not meet criteria for involuntary admission/extension due to having a [normal] mental status exam, [fair] insight into the situation, They are engaged in the discharge process, as well as being friendly and amenable in behavioral control and havent been engaging in any observed concerning behavior or ideation recently. They decline voluntary extension/admission at this time and must be discharged in [place], as Im unable to make a case for holding the patient against their will. They may have historical risk factors of admissions and other interactions with psychiatry however, those are not modifiable from a clinical perspective. The patient will need to be discharged in [place]. MENTAL STATUS EXAMINATION ON DISCHARGE: [General: Well dressed with good hygiene Speech: Spontaneous and fluid Thought processes: Linear and logical Thought content: Future orientated Abstract reasoning, and computation: Intact Description of associations: Intact Description of abnormal or psychotic thoughts:Denies any suicidal or homicidal ideation. Denies any auditory or visual hallucinations. Does not appear to be responding to internal stimuli. Does not appear to be endorsing any bizarre or paranoid ideation. Judgment: fair Insight: fair Orientation: Alert and orientated 3 Recent and remote memory: Intact Attention span and concentration: Intact Fund of knowledge: Adequate Mood: "okay" Affect: Euthymic with a full range] PLAN/FOLLOWUP ARRANGEMENTS: Follow up appointments made (PCP and MH in 5 days of D/C date) and safety plan completed. Safety Planning aspects completed prior to discharge [Medication supplies limited to 7 days with 4 refills to prevent accumulation to OD] [RN reviewed crisis hotline information and other aspects to empower patient to access care in interim before next appointment.] The amount of time spent in the coordination of care for this patient was approximately 30 minutes. Vital Signs/I&Os Vital Signs Date Time Temp Pulse Resp B/P (MAP) Pulse Ox O2 Delivery O2 Flow Rate FiO2 01/10/20 06:15 96.3 76 16 123/70 (87) 01/09/20 17:26 98 Room Air Medications Scheduled Benztropine Mesylate (Benztropine Mesylate) 0.5 Mg Tablet, 0.5 MG PO BID, (Reported) Calcium Carbonate (Calcium) 600 Mg Tablet, 600 MG PO DAILY, (Reported) Cholecalciferol (Vitamin D3) (Vitamin D3) 50 Mcg Tablet, 50 MCG PO DAILY, (Reported) Fluphenazine HCl (Fluphenazine HCl) 5 Mg Tablet, 15 MG PO BID for thoughts for 7 Days, #42 Levothyroxine Sodium (Levothyroxine Sodium) 175 Mcg Tab, 175 MCG PO DAILY, (Reported) Quetiapine Fumarate (Seroquel) 50 Mg Tablet, 50 MG PO BID, (Reported) Rosuvastatin Calcium (Rosuvastatin Calcium) 20 Mg Tab, 20 MG PO DAILY, (Reported) Sertraline HCl (Sertraline HCl) 25 Mg Tablet, 25 MG PO QAM for mood for 7 Days, #7 Scheduled PRN Trazodone HCl (Trazodone HCl) 50 Mg Tablet, 50 MG PO QHSP PRN for INSOMNIA for 7 Days, #7 Allergies Coded Allergies: No Known Allergies (Unverified , 11/13/18) Problems (1) Chronic schizophrenia Status: Chronic Response to Treatment: Stable (2) Depression Status: Resolved Response to Treatment: Stable Plan / VTE VTE Prophylaxis Ordered?: MICHEAL Jaime DO Jan 10, 2020 10:02
== END 2020-01-10 13:20 | disposition home or self-care (01) | DRG 885 ==
LOC: M ED 12:25 → M ED INP 18:21 → M PSY 21:45
PROVIDERS: ADMIT Psychiatry & Neurology Addiction Medicine; ATTEND Psychiatry & Neurology Addiction Medicine
DX: F20.5 Residual schizophrenia (principal); F32.9 Major depressive disorder, single episode, unspecified; E03.9 Hypothyroidism, unspecified; Z79.899 Other long term (current) drug therapy; E78.5 Hyperlipidemia, unspecified; Z87.891 Personal history of nicotine dependence

== ENCOUNTER → 2020-01-28 | Outpatient (REF) | payer MEDICARE, MEDICAID ==
[~2020-01-28] MED LIST changes: +CALCTAB62 PO; +FLUP5TA PO; +SERT25TA21 PO; +TRAZ-252 PO
[2020-01-28 15:12] LABS: BASO % 0.6 % (0.0-1.0); EOS # 0.1 10^3/uL (0.0-0.5); EOS % 2.4 % (0.0-3.0); HEMATOCRIT 44.3 % (42.0-52.0); HEMOGLOBIN 14.9 g/dl (13.5-17.5); LYMPH # 1.3 10^3/uL (1.5-5.0); LYMPH % 26.4 % (24.0-44.0); MEAN CORPUSCULAR HEMOGLOBIN 29.4 pg (27.0-33.0); MEAN CORPUSCULAR HGB CONC 33.6 g/dl (32.0-36.5); MEAN CORPUSCULAR VOLUME 87.4 fl (80.0-96.0); MONO # 0.6 10^3/uL (0.0-0.8); MONO % 11.5 % (0.0-5.0); NEUTROPHILS % 58.9 % (36.0-66.0); PLATELET COUNT, AUTOMATED 119 10^3/uL (150-450); RED BLOOD COUNT 5.07 10^6/uL (4.30-6.10)
[2020-01-28 15:20] LABS: ALBUMIN 4.2 GM/DL (3.2-5.2); ALT/SGPT 42 U/L (12-78); BILIRUBIN,TOTAL 0.6 MG/DL (0.2-1.0); BLOOD UREA NITROGEN 10 MG/DL (7-18); CALCIUM LEVEL 9.5 MG/DL (8.8-10.2); CARBON DIOXIDE LEVEL 30 MEQ/L (21-32); CHLORIDE LEVEL 105 MEQ/L (98-107); CHOLESTEROL LEVEL 148 MG/DL (<200); CHOLESTEROL RISK RATIO 2.846 (<5); CREATININE FOR GFR 1.04 MG/DL (0.70-1.30); FREE T4 1.24 NG/DL (0.76-1.46); GLOMERULAR FILTRATION RATE > 60.0 (>49); GLUCOSE, FASTING 84 MG/DL (70-100); HDL CHOLESTEROL 52 MG/DL (>40); LDL CHOLESTEROL 72 MG/DL (<100); NON-HDL-C 96 MG/DL; POTASSIUM SERUM 4.2 MEQ/L (3.5-5.1); SODIUM LEVEL 141 MEQ/L (136-145); TOTAL PROTEIN 6.9 GM/DL (6.4-8.2); TRIGLYCERIDES LEVEL 122 MG/DL (<150)
== END ==
LOC: M LAB REF 13:29
PROVIDERS: ATTEND Nurse Practitioner Family
DX: D69.6 Thrombocytopenia, unspecified (principal); Z13.9 Encounter for screening, unspecified; E03.9 Hypothyroidism, unspecified; E78.5 Hyperlipidemia, unspecified

== ENCOUNTER → 2020-12-17 | Outpatient (REF) | payer MEDICARE, MEDICAID ==
[~2020-12-17] MED LIST changes: -CALC600T3 PO; +CALC600T86 PO; -FLUP5TA PO; +FLUP5TAB13 PO; +QUET50TA3; -QUET5TAB
[2020-12-17 11:21] LABS: BASO % 0.7 % (0.0-1.0); EOS # 0.2 10^3/uL (0.0-0.5); EOS % 2.8 % (0.0-3.0); HEMATOCRIT 43.5 % (42.0-52.0); HEMOGLOBIN 14.3 g/dl (13.5-17.5); LYMPH # 1.5 10^3/uL (1.5-5.0); MEAN CORPUSCULAR HEMOGLOBIN 28.7 pg (27.0-33.0); MEAN CORPUSCULAR HGB CONC 32.9 g/dl (32.0-36.5); MEAN CORPUSCULAR VOLUME 87.3 fl (80.0-96.0); MONO # 0.5 10^3/uL (0.0-0.8); MONO % 10.1 % (2.0-8.0); NEUTROPHILS # 3.1 10^3/uL (1.5-8.5); NEUTROPHILS % 58.2 % (36.0-66.0); PLATELET COUNT, AUTOMATED 135 10^3/uL (150-450); RED BLOOD COUNT 4.98 10^6/uL (4.30-6.10); WHITE BLOOD COUNT 5.4 10^3/uL (4.0-10.0)
[2020-12-17 11:58] LABS: ALBUMIN 4.3 GM/DL (3.2-5.2); ALT/SGPT 24 U/L (12-78); BILIRUBIN,TOTAL 0.5 MG/DL (0.2-1.0); BLOOD UREA NITROGEN 13 MG/DL (7-18); CALCIUM LEVEL 9.6 MG/DL (8.8-10.2); CARBON DIOXIDE LEVEL 33 MEQ/L (21-32); CHLORIDE LEVEL 103 MEQ/L (98-107); CHOLESTEROL LEVEL 155 MG/DL (<200); CREATININE FOR GFR 1.02 MG/DL (0.70-1.30); FREE T4 1.13 NG/DL (0.76-1.46); GLOMERULAR FILTRATION RATE > 60.0 (>49); GLUCOSE, FASTING 79 MG/DL (70-100); HDL CHOLESTEROL 61 MG/DL (>40); LDL CHOLESTEROL 78 MG/DL (<100); NON-HDL-C 94 MG/DL; POTASSIUM SERUM 4.3 MEQ/L (3.5-5.1); SODIUM LEVEL 138 MEQ/L (136-145); TOTAL PROTEIN 6.6 GM/DL (6.4-8.2); TRIGLYCERIDES LEVEL 78 MG/DL (<150)
[2020-12-19 00:07] LABS: PSA % FREE 29.1 % (.); PSA FREE 1.28 ng/mL; PSA TOTAL 4.4 ng/mL (0.0-4.0)
== END ==
LOC: M LAB REF 10:44
PROVIDERS: ATTEND Nurse Practitioner Family
DX: E03.9 Hypothyroidism, unspecified (principal); F41.8 Other specified anxiety disorders; G47.00 Insomnia, unspecified; R97.20 Elevated prostate specific antigen [PSA]

== ENCOUNTER → 2021-03-11 | Outpatient (REF) | payer MEDICARE, MEDICAID ==
[2021-03-11 13:33] LABS: BASO % 0.6 % (0.0-1.0); EOS # 0.1 10^3/uL (0.0-0.5); EOS % 2.1 % (0.0-3.0); HEMOGLOBIN 14.6 g/dl (13.5-17.5); LYMPH # 1.3 10^3/uL (1.5-5.0); LYMPH % 27.2 % (24.0-44.0); MEAN CORPUSCULAR HEMOGLOBIN 29.3 pg (27.0-33.0); MEAN CORPUSCULAR HGB CONC 33.2 g/dl (32.0-36.5); MEAN CORPUSCULAR VOLUME 88.2 fl (80.0-96.0); MONO # 0.5 10^3/uL (0.0-0.8); MONO % 10.1 % (2.0-8.0); NEUTROPHILS # 2.8 10^3/uL (1.5-8.5); NEUTROPHILS % 59.8 % (36.0-66.0); PLATELET COUNT, AUTOMATED 145 10^3/uL (150-450); RED BLOOD COUNT 4.99 10^6/uL (4.30-6.10); WHITE BLOOD COUNT 4.8 10^3/uL (4.0-10.0)
[2021-03-11 13:58] LABS: ALBUMIN 4.2 GM/DL (3.2-5.2); ALT/SGPT 36 U/L (12-78); BILIRUBIN,TOTAL 0.6 MG/DL (0.2-1.0); BLOOD UREA NITROGEN 9 MG/DL (7-18); CALCIUM LEVEL 9.3 MG/DL (8.8-10.2); CARBON DIOXIDE LEVEL 30 MEQ/L (21-32); CHLORIDE LEVEL 106 MEQ/L (98-107); CREATININE FOR GFR 0.91 MG/DL (0.70-1.30); FREE T4 1.46 NG/DL (0.76-1.46); GLOMERULAR FILTRATION RATE > 60.0 (>49); GLUCOSE, FASTING 80 MG/DL (70-100); POTASSIUM SERUM 4.6 MEQ/L (3.5-5.1); SODIUM LEVEL 141 MEQ/L (136-145); THYROID STIMULATING HORMONE 0.128 uIU/ML (0.358-3.740); TOTAL PROTEIN 6.6 GM/DL (6.4-8.2)
== END ==
LOC: M LAB REF 13:11
PROVIDERS: ATTEND Nurse Practitioner Family
DX: E03.9 Hypothyroidism, unspecified (principal); F41.8 Other specified anxiety disorders; G47.00 Insomnia, unspecified

== ENCOUNTER → 2023-01-03 | Outpatient (REF) | payer MEDICARE, MEDICAID ==
[~2023-01-03] MED LIST changes: +BENZ0.5T2 PO; -BENZ0.5T23 PO; -QUET50TA3; +QUET50TA4
[2023-01-03 17:03] LABS: ALBUMIN 4.1 G/DL (3.2-5.2); ALKALINE PHOSPHATASE 63 U/L (46-116); ALT/SGPT 32 U/L (7.0-40); AST/SGOT 24 U/L (<34); BILIRUBIN,TOTAL 0.6 MG/DL (0.3-1.2); BLOOD UREA NITROGEN 14 MG/DL (9-23); CALCIUM LEVEL 9.5 MG/DL (8.3-10.6); CARBON DIOXIDE LEVEL 26 MMOL/L (20-31); CHLORIDE LEVEL 103 MMOL/L (98-107); CHOLESTEROL LEVEL 125 MG/DL (<200); GLOMERULAR FILTRATION RATE > 60.0 (>49); GLUCOSE, FASTING 82 MG/DL (74-106); LDL CHOLESTEROL 64.4 MG/DL (<100); POTASSIUM SERUM 4.1 MMOL/L (3.5-5.1); SODIUM LEVEL 138 MMOL/L (136-145); TOTAL PROTEIN 6.4 G/DL (5.7-8.2); TRIGLYCERIDES LEVEL 43 MG/DL (<150)
[2023-01-03 17:04] LABS: THYROID STIMULATING HORMONE 4.322 uIU/ML (0.55-4.78)
[2023-01-03 17:34] LABS: BASO # 0.1 10^3/uL (0.0-0.2); BASO % 1.1 % (0.0-1.0); EOS # 0.1 10^3/uL (0.0-0.5); EOS % 2.3 % (0.0-3.0); HEMATOCRIT 41.2 % (42.0-52.0); HEMOGLOBIN 13.8 g/dl (13.5-17.5); LYMPH # 0.9 10^3/uL (1.5-5.0); LYMPH % 20.6 % (24.0-44.0); MEAN CORPUSCULAR HEMOGLOBIN 29.7 pg (27.0-33.0); MEAN CORPUSCULAR HGB CONC 33.5 g/dl (32.0-36.5); MEAN CORPUSCULAR VOLUME 88.6 fl (80.0-96.0); MONO # 0.4 10^3/uL (0.0-0.8); MONO % 9.5 % (2.0-8.0); NEUTROPHILS # 2.9 10^3/uL (1.5-8.5); NEUTROPHILS % 66.3 % (36.0-66.0); PLATELET COUNT, AUTOMATED 126 10^3/uL (150-450); RED BLOOD COUNT 4.65 10^6/uL (4.30-6.10); WHITE BLOOD COUNT 4.4 10^3/uL (4.0-10.0)
== END ==
LOC: M LAB REF 16:08
PROVIDERS: ATTEND Nurse Practitioner Family
DX: E03.9 Hypothyroidism, unspecified (principal); Z13.228 Encounter for screening for other metabolic disorders

== ENCOUNTER → 2024-03-11 | Outpatient (REF) | payer MEDICARE, MEDICAID ==
[~2024-03-11] MED LIST changes: -ROSU20TA5 PO; +ROSU20TA61 PO
[2024-03-12 15:13] LABS: EOS # 0.1 10^3/uL (0.0-0.5); EOS % 2.5 % (0.0-3.0); HEMATOCRIT 37.5 % (42.0-52.0); HEMOGLOBIN 12.7 g/dl (13.5-17.5); LYMPH # 0.9 10^3/uL (1.5-5.0); MEAN CORPUSCULAR HEMOGLOBIN 29.7 pg (27.0-33.0); MEAN CORPUSCULAR HGB CONC 33.9 g/dl (32.0-36.5); MEAN CORPUSCULAR VOLUME 87.8 fl (80.0-96.0); MONO # 0.4 10^3/uL (0.0-0.8); NEUTROPHILS # 1.6 10^3/uL (1.5-8.5); NEUTROPHILS % 52.1 % (36.0-66.0); RED BLOOD COUNT 4.27 10^6/uL (4.30-6.10); WHITE BLOOD COUNT 3.2 10^3/uL (4.0-10.0)
[2024-03-12 15:36] LABS: ALBUMIN 3.8 G/DL (3.2-5.2); ALKALINE PHOSPHATASE 62 U/L (46-116); ALT/SGPT 31 U/L (7.0-40); AST/SGOT 18 U/L (<34); BILIRUBIN,TOTAL 0.4 MG/DL (0.3-1.2); BLOOD UREA NITROGEN 14 MG/DL (9-23); CARBON DIOXIDE LEVEL 32 MMOL/L (20-31); CHLORIDE LEVEL 106 MMOL/L (98-107); CHOLESTEROL LEVEL 118 MG/DL (<200); CREATININE FOR GFR 1.19 MG/DL (0.70-1.30); GLOMERULAR FILTRATION RATE > 60.0 (>42); GLUCOSE, FASTING 86 MG/DL (74-106); HDL CHOLESTEROL 36.8 MG/DL (>40); LDL CHOLESTEROL 69.2 MG/DL (<100); NON-HDL-C 81.2 MG/DL; POTASSIUM SERUM 4.2 MMOL/L (3.5-5.1); SODIUM LEVEL 141 MMOL/L (136-145); TOTAL PROTEIN 6.1 G/DL (5.7-8.2); TRIGLYCERIDES LEVEL 60 MG/DL (<150)
== END ==
LOC: M LAB REF 13:40
PROVIDERS: ATTEND Nurse Practitioner Family
DX: I95.9 Hypotension, unspecified (principal); E78.5 Hyperlipidemia, unspecified

== ENCOUNTER → 2024-04-11 | Outpatient (CLI) | payer OTHER, MEDICAID | LOC: M RAD 09:55 | PROVIDERS: ATTEND Nurse Practitioner Family | DX: M54.2 Cervicalgia (principal) ==